=== PATIENT | male | born 1985 | race Caucasian/White ===

== ENCOUNTER 2017-01-01 07:38 | Emergency (ER) | payer SELFPAY ==
[2017-01-01 08:11] LABS: WBC (NOT ORDERED) (RFLEX) 0 (0-5)
[2017-01-01 08:16] LABS: BASOPHILS 0 %; EOSINOPHILS 0 %; HEMATOCRIT 42.5 % (40.0-51.0); HEMOGLOBIN 15.5 g/dL (13.6-17.8); IMMATURE GRANULOCYTES 0.1 %; IMMATURE GRANULOCYTES ABSOLUTE 0.01 10/3/uL (0.0-0.11); LYMPHOCYTES 5.7 %; MEAN CORPUS HGB CONC 36.5 g/dL (32.0-36.0); MEAN PLATELET VOLUME 10.4 fL (9.2-13.0); MONOCYTES 1.9 %; MONOCYTES ABSOLUTE 0.26 10/3/uL (0.21-1.20); NEUTROPHILS 92.3 %; NEUTROPHILS ABSOLUTE 12.93 10/3/uL (2.02-8.40); PLATELET COUNT 246 10/3/uL (150-400); RBC DISTRIBUTION WIDTH 12.6 % (12.0-16.0); RED CELL COUNT 5.17 10/6/uL (4.7-6.1)
[2017-01-01 08:17] LABS: ER CBC TAT 0 Hrs 07 Mins; MANUAL DIFF NO %; MEAN CORPUSCULAR VOLUME 82.2 fL (80-100)
[2017-01-01 08:24] LABS: ASCORBIC ACID (UR NOT ORDER) NEG (NEG); BILIRUBIN, URINE NEGATIVE (NEG); ER URINALYSIS TAT 0 Hrs 14 Mins; KETONE, URINE NEGATIVE (NEG); LEUKOCYTE ESTERASE(NOT OR NEG (NEG); NITRITE (URINE) NEG (NEG)
[2017-01-01 08:31] LABS: CALCIUM, SERUM 9.4 MG/DL (8.5-10.4); CHLORIDE, SERUM 110 MMOL/L (96-112); GFR AFRICAN AMERICAN 102 ML/MIN (>=60); GFR NON AFRICAN AMERICAN 88 ML/MIN (>=60); POTASSIUM, SERUM 3.8 MMOL/L (3.5-5.3); SODIUM, SERUM 144 MMOL/L (135-148)
[2017-01-01 08:32] LABS: BUN (BLOOD UREA NITROGEN) 14 MG/DL (6-23); CO2 (CARBON DIOXIDE) 22 MMOL/L (24-34); GLUCOSE, SERUM 157 MG/DL (60-99)
[2017-01-01 08:33] LABS: ACETAMINOPHEN LEVEL (TYLENOL) < 2.0 MCG/ML (10.0-20.0); ALCOHOL < 10 MG/DL (0); SALICYLATE < 1.7 MG/DL (-)
[2017-01-01 09:25] LABS: AMPHETAMINES (NOT ORD) NEG (NEG); BARBITURATES (NOT ORDERED NEG (NEG); BENZODIAZEPINES (NOT ORD) NEG (NEG); CANNABINOIDS (THC) NEG (NEG); COCAINE (NOT ORDERED) NEG (NEG); OPIATES NEG (NEG); PHENCYCLIDINE(PCP) NEG (NEG); TRICYCLICS NEG (NEG)
== END 2017-01-01 09:21 | disposition home or self-care (01) ==
LOC: ER 07:38
PROVIDERS: Nurse Practitioner Family
DX: G89.29 Other chronic pain (principal); M25.511 Pain in right shoulder; I10 Essential (primary) hypertension; Z87.442 Personal history of urinary calculi
CPT/HCPCS: 73030-RT; 80048; 80305; 80307; 81001; 85025; 99283; A9270-GY

== ENCOUNTER 2017-03-11 02:43 | Emergency (ER) | payer SELFPAY ==
[2017-03-11 02:49] LABS: ASCORBIC ACID (UR NOT ORDER) NEG (NEG); BILIRUBIN, URINE NEGATIVE (NEG); ER URINALYSIS TAT 0 Hrs 00 Mins; KETONE, URINE NEGATIVE (NEG); LEUKOCYTE ESTERASE(NOT OR NEG (NEG); NITRITE (URINE) NEG (NEG); WBC (NOT ORDERED) (RFLEX) 1 (0-5)
== END 2017-03-11 03:08 | disposition home or self-care (01) ==
LOC: ER 02:43
PROVIDERS: Specialist
DX: N50.812 Left testicular pain (principal)
CPT/HCPCS: 76870; 81001; 99284

== ENCOUNTER 2017-06-29 07:58 | Emergency (ER) | payer SELFPAY | END 2017-06-29 09:50 | disposition home or self-care (01) | LOC: ER 07:58 | DX: Z76.5 Malingerer [conscious simulation] (principal); G89.29 Other chronic pain; M54.5 Low back pain | CPT/HCPCS: 99283 ==

== ENCOUNTER 2017-07-11 19:52 | Emergency (ER) | payer SELFPAY | END 2017-07-11 20:52 | disposition home or self-care (01) | LOC: ER 19:52 | DX: G89.29 Other chronic pain (principal); M54.5 Low back pain | CPT/HCPCS: 99283 ==